=== PATIENT | male | born 1955 | race Caucasian/White ===

== ENCOUNTER 2017-03-26 13:31 | Emergency (ER) | payer OTHER, MEDICAID ==
[~2017-03-26] VITALS: Ht 177.8 cm; Wt 99.8 kg
[2017-03-26 14:35] VITALS: BP 147/98
[2017-03-26] MEDS ORDERED: KETOROLAC TROMETH 60MG/2ML VIAL IM ONE (15:45)
== END 2017-03-26 17:11 | disposition home or self-care (01) ==
LOC: ER 13:31
DX: M43.16 Spondylolisthesis, lumbar region (principal); M19.90 Unspecified osteoarthritis, unspecified site; E78.5 Hyperlipidemia, unspecified; I10 Essential (primary) hypertension
CPT/HCPCS: 72110; 81002; 93005; 96372; 99284; J1885

== ENCOUNTER 2017-09-13 12:55 | Emergency (ER) | payer OTHER, MEDICAID ==
[~2017-09-13] VITALS: Ht 175.3 cm; Wt 97.5 kg
[2017-09-13 12:58] VITALS: BP 168/102
== END 2017-09-13 13:45 | disposition home or self-care (01) ==
LOC: ER 12:55
DX: B86 Scabies (principal); M19.90 Unspecified osteoarthritis, unspecified site; E78.5 Hyperlipidemia, unspecified; I10 Essential (primary) hypertension